=== PATIENT | female | born 2000 | race Two or more races ===

== ENCOUNTER 2023-07-30 14:59 | Outpatient (RCR) | payer OTHER, SELFPAY | END 2023-08-25 23:59 | disposition home or self-care (01) | LOC: CPTX 14:59 | PROVIDERS: PCP Family Medicine; Referring Provider Family Medicine; Visit Provider Family Medicine | DX: Z53.9 Procedure and treatment not carried out, unspecified reason (principal) ==

== ENCOUNTER → 2024-03-20 | Outpatient (CLI) | payer OTHER, SELFPAY ==
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
== END | disposition home or self-care (01) ==
LOC: SMRI 11:41
PROVIDERS: PCP Family Medicine; Referring Provider Family Medicine; Visit Provider Family Medicine
DX: M67.814 Other specified disorders of tendon, left shoulder (principal); M67.813 Other specified disorders of tendon, right shoulder; S49.92XS Unspecified injury of left shoulder and upper arm, sequela; S49.91XS Unspecified injury of right shoulder and upper arm, sequela; V89.2XXS Person injured in unspecified motor-vehicle accident, traffic, sequela
CPT/HCPCS: 73221